=== PATIENT | female | born 1950 | race Caucasian/White ===

== ENCOUNTER 2020-04-17 11:20 | Outpatient (REF) | payer MEDICARE, OTHER, SELFPAY ==
[2020-04-17 14:04] LABS: Hemoglobin 13.6 g/dl (12.0-16.0); Mean Corpuscular HGB Conc 33.2 g/dl (31.0-35.0); Mean Corpuscular Hemoglobin 28.9 pg (27.0-33.0); Mean Platelet Volume 11.8 fL (9.4-12.3); Platelet Count 213 X10*3/uL (160-400); Red Blood Count 4.71 X10*6/uL (4.20-5.50); Red Cell Distribution Width 12.3 % (11.0-16.0); White Blood Count 5.6 X10*3/uL (4.8-10.8)
[2020-04-17 14:11] LABS: Glucose Urine UA NEG (NEG); Leukocyte Esterase Urine 2+ (NEG); Nitrite Urine NEG (NEG); Urine Blood NEG (NEG); Urine Ketones NEG (NEG); Urine Protein NEG (NEG-TRACE)
[2020-04-17 14:22] LABS: Appearance Urine HAZY; Color Urine YELLOW
[2020-04-17 14:38] LABS: Alanine Aminotransferase 21 U/L (0-31); Albumin Level 4.5 g/dL (3.5-5.0); Alkaline Phosphatase 66 U/L (39-117); Anion Gap 11 (12-20); Aspartate Amino Transferase 21 U/L (5-31); Bilirubin Total 0.6 mg/dL (0.0-1.0); Blood Urea Nitrogen 14 mg/dL (9-16); Calcium 9.6 mg/dL (8.4-10.2); Carbon Dioxide 30 mmol/L (22-29); Chloride 105 mmol/L (96-108); Cholesterol 206 mg/dL; Estimated Glomerular Filt Rate > 60; Glucose Fasting 88 mg/dL (60-99); HDL Cholesterol 43 mg/dL; LDL Cholesterol Calculated 125 mg/dl; Potassium 5.2 mmol/l (3.3-5.1); Sodium 141 mmol/L (135-145); Total Protein 7.2 g/dL (6.5-8.0); Triglycerides 194 mg/dL
[2020-04-17 15:01] LABS: Free T4 (Free Thyroxine) 1.09 ng/dL (0.71-1.85); Thyroid Stimulating Hormone 1.44 mIU/mL (0.32-4.0)
[2020-04-17 15:14] LABS: RBC Urine 0 /HPF (0); Squamous Epithelial Cell Urine 1+ /LPF
[2020-04-17 15:15] LABS: Mucus Urine 1+ /LPF
== END 2020-04-17 11:21 | disposition home or self-care (01) ==
LOC: HO.HMGCLDS 11:20
PROVIDERS: PCP Internal Medicine; Visit Provider Internal Medicine
DX: Z00.00 Encounter for general adult medical examination without abnormal findings (principal); E04.9 Nontoxic goiter, unspecified; E78.00 Pure hypercholesterolemia, unspecified; E55.9 Vitamin D deficiency, unspecified
CPT/HCPCS: 36415; 80053; 80061; 81003; 81015; 82306; 84439; 84443; 85027

== ENCOUNTER 2020-05-11 12:55 | Outpatient (REF) | payer MEDICARE, OTHER, SELFPAY ==
--- NOTE | 2020-05-11 13:01 | US_ITS ---
EXAMINATION: US THYROID CLINICAL INFORMATION: Nontoxic single thyroid nodule. COMPARISON: None TECHNIQUE: Linear transducer blackmon-scale and color Doppler examination with attention to the region of the thyroid. FINDINGS: SIZE: Measurements of the thyroid lobes and nodules are given in sagittal, anteroposterior and transverse dimensions respectively. Right Thyroid Lobe: 5.4 x 1.6 x 1.6 cm, volume 7.5 mL. Previously, it measured 5.2 x 1.9 x 1.7 cm and volume 8.8 mL. Parenchyma: The gland echotexture is heterogeneous. Thyroid vascularity is normal. Left Thyroid Lobe: 5.3 x 1.9 x 1.9 cm, volume 10.0 mL. Parenchyma: The gland echotexture is heterogeneous. Thyroid vascularity is normal. Isthmus: 0.31 cm in maximum AP dimension. RIGHT THYROID LOBE: There are several nodules. 1. Lower pole nodule measures 1.3 x 0.60 x 1.1 cm. It is heterogenous, smoothly marginated and has intranodular flow. Previously, it measured 1.2 x 0.71 x 1.0 cm. 2. Lower pole nodule measures 0.90 x 0.90 x 0.81 cm. It is heterogenous, smoothly marginated and has intranodular flow. Previously, it measured 0.61 x 0.40 x 0.50 cm. 3. A midpole nodule measures 0.77 x 0.52 x 0.70 cm. It is heterogeneous, smoothly marginated and has intranodular flow. Previously, it measured 0.72 x 0.70 x 0.80 cm. 4. Lower pole nodule measures 1.3 x 1.4 x 1.11 cm. It is hypoechoic, smoothly marginated and has intranodular flow. Previously, it measured 0.94 x 1.2 x 1.0 cm. ISTHMUS: No nodules. LEFT THYROID LOBE: There are at least 4 nodules seen. 1. Lower pole nodule measures 2.0 x 1.2 x 1.4 cm. It is heterogeneous, smoothly marginated and has intranodular flow. Previously, it measured 1.7 x 1.1 x 1.4 cm. 2. Lower pole nodule measures 1.1 x 0.74 x 0.80 cm. It is heterogenous, smoothly marginated with no intranodular flow. Previously, it measured 0.81 x 0.71 x 0.80 cm. 3. Midpole nodule measures 2.3 x 1.4 x 1.3 cm. It is heterogenous, smoothly marginated and has intranodular flow. Previously, it measured 1.7 x 1.3 x 1.3 cm. 4. Midpole nodule measures 0.62 x 0.40 x 0.61 cm. It is heterogeneous, smoothly marginated and has peripheral flow. Likely colloid cyst. Previously, it measured 0.65 x 0.40 x 0.55 cm. NODES: No lymphadenopathy is seen in the tissue surrounding the thyroid gland. US/US thyroid IMPRESSION: Enlarged heterogeneous thyroid gland with multiple bilateral thyroid nodules with minimal change from the last exam 02/24/2018. The left thyroid lobe midpole nodule shows minimal enlargement and is suspicious similar to previous study. If clinically indicated, fine-needle aspiration biopsy can be performed if already not done.
== END 2020-05-11 12:56 | disposition home or self-care (01) ==
LOC: HO.HMGCX 12:55
PROVIDERS: PCP Internal Medicine; Visit Provider Internal Medicine
DX: E04.1 Nontoxic single thyroid nodule (principal)
CPT/HCPCS: 76536

== ENCOUNTER 2021-09-05 07:51 | Outpatient (REF) | payer MEDICARE, OTHER, SELFPAY ==
[2021-09-05 11:15] LABS: Appearance Urine CLEAR; Color Urine YELLOW; Glucose Urine UA NEG (NEG); Leukocyte Esterase Urine 2+ (NEG); Nitrite Urine NEG (NEG); Urine Blood NEG (NEG); Urine Ketones NEG (NEG); Urine Protein NEG (NEG-TRACE)
[2021-09-05 11:16] LABS: Hematocrit 41.5 % (37.0-47.0); Hemoglobin 13.6 g/dl (12.0-16.0); Mean Corpuscular HGB Conc 32.8 g/dl (31.0-35.0); Mean Corpuscular Hemoglobin 28.3 pg (27.0-33.0); Mean Corpuscular Volume 86.3 fL (80.0-98.0); Mean Platelet Volume 11.2 fL (9.4-12.3); Platelet Count 222 X10*3/uL (160-400); Red Blood Count 4.81 X10*6/uL (4.20-5.50); Red Cell Distribution Width 12.5 % (11.0-16.0); White Blood Count 6.5 X10*3/uL (4.8-10.8)
[2021-09-05 11:34] LABS: Mucus Urine 1+ /LPF; RBC Urine 0-2 /HPF (0); Squamous Epithelial Cell Urine 1+ /LPF; WBC Urine 0-2 /HPF (0-4)
[2021-09-05 11:42] LABS: Alanine Aminotransferase 22 U/L (0-31); Albumin Level 3.9 g/dL (3.5-5.0); Alkaline Phosphatase 60 U/L (39-117); Anion Gap 11 (12-20); Aspartate Amino Transferase 19 U/L (5-31); Bilirubin Total 0.6 mg/dL (0.0-1.0); Blood Urea Nitrogen 18 mg/dL (9-16); Calcium 9.6 mg/dL (8.4-10.2); Carbon Dioxide 26 mmol/L (22-29); Chloride 106 mmol/L (96-108); Cholesterol 235 mg/dL; Estimated Glomerular Filt Rate > 60; Glucose Fasting 95 mg/dL (60-99); HDL Cholesterol 39 mg/dL; LDL Cholesterol Calculated 150 mg/dl; Potassium 4.3 mmol/L (3.3-5.1); Sodium 139 mmol/L (135-145); Total Protein 6.6 g/dL (6.5-8.0); Triglycerides 233 mg/dL
[2021-09-05 11:53] LABS: TSH reflex Free T4 1.99 uIU/mL (0.32-4.0); Vitamin D 25-OH Total 37.9 ng/mL (>30)
== END 2021-09-05 07:52 | disposition home or self-care (01) ==
LOC: HO.HMGCLNP 07:51
PROVIDERS: Visit Provider Internal Medicine
DX: Z00.00 Encounter for general adult medical examination without abnormal findings (principal); Z13.220 Encounter for screening for lipoid disorders; Z13.29 Encounter for screening for other suspected endocrine disorder
CPT/HCPCS: 80053; 80061; 81001; 82306; 84443; 85027

== ENCOUNTER 2021-10-09 09:13 | Outpatient (REF) | payer MEDICARE, OTHER, SELFPAY ==
--- NOTE | ~2021-10-09 | MM_ITS ---
EXAMINATION: BONE DENSITOMETRY CLINICAL INDICATION: Age-related osteoporosis without current pathological fracture. COMPARISON: This is the patient's baseline examination. TECHNIQUE: Using a Sweeper[employer] DXA System (software version: 13.1) manufactured by [employer], dual-energy x-ray absorptiometry was performed of the lumbar spine and left hip. The images are of good technical quality. Summary results are attached. FINDINGS: AP SPINE L1-L2 (excluding L3 and L4): The data of L1-L4 has been changed to exclude the L3 and L4 vertebral bodies, because degenerative changes at these levels may cause overestimation of lumbar spine density. BMD 0.788 g/cm2, Z-score -1.4, T-score -3.1, osteoporosis. LEFT FEMUR, NECK: BMD 0.755 g/cm2, Z-score -0.2, T-score -2.0, osteopenia. LEFT FEMUR, TOTAL: BMD 0.903 g/cm2, Z-score 0.8, T-score -0.8, normal. IDENTIFIED RISK FACTORS: Secondary osteoporosis, menopause. HISTORY OF FRACTURE: None listed. MEDICATIONS: Calcium supplements or multivitamin, vitamin D. MM/XR DEXA axial skeleton IMPRESSION: 1. DIAGNOSIS: Osteoporosis based on the lowest T-score value of -3.1 in the lumbar spine applying World Health Organization criteria. 2. 10-YEAR FRACTURE RISK PREDICTION, FRAX: According to the guidelines, FRAX calculation should only be performed on patients in the osteopenia bone density category. Therefore, FRAX was not performed on this patient. 3. Treatment Recommendations: NOF guidelines recommend consideration for treatment in postmenopausal women and men age 50 and older presenting with the following: -A hip or vertebral (clinical or morphometric) fracture. -T-score less than or equal to -2.5 at the femoral neck or spine after appropriate evaluation to exclude secondary causes. -Low bone mass at the hip or spine and a 10-year fracture probability by FRAX of greater than or equal to 3% for hip fracture or greater than or equal to 20% for major osteoporotic fracture based on the [place] adapted WHO algorithm. 4. Other Recommendations: All treatment decisions require clinical judgment and consideration of individual patient factors, including patient preferences, comorbidities, previous drug use, risk factors not captured in the FRAX model (e.g. frailty, falls, vitamin D deficiency, increased bone turnover, interval significant decline in bone density) and possible under or overestimation of fracture risk by FRAX. Additional medical evaluation for secondary cause of low bone mineral density may be appropriate. FUTURE SCAN RECOMMENDATION: People with diagnosed cases of osteoporosis or at high risk for fracture should have regular bone mineral density tests. For patients eligible for Medicare, routine testing is allowed once every 2 years. The testing frequency can be increased to one year for patients who have rapidly progressing disease, those who are receiving or discontinuing medical therapy to restore bone mass, or have additional risk factors.
== END 2021-10-09 09:14 | disposition home or self-care (01) ==
LOC: HO.MAMMO 09:13
PROVIDERS: PCP Internal Medicine; Visit Provider Internal Medicine
DX: Z13.820 Encounter for screening for osteoporosis (principal); M81.0 Age-related osteoporosis without current pathological fracture; Z78.0 Asymptomatic menopausal state
CPT/HCPCS: 77080

== ENCOUNTER 2022-03-21 13:21 | Outpatient (REF) | payer MEDICARE, OTHER, SELFPAY ==
--- NOTE | ~2022-03-21 | XR_ITS ---
EXAMINATION: XR LUMBOSACRAL SPINE CLINICAL INFORMATION: Low back pain. COMPARISON: None TECHNIQUE: Three views of the lumbosacral spine. FINDINGS: There is generalized osteopenia. Mild lumbar levoscoliosis with apex at L2. Mild to moderate multilevel degenerative changes are seen most pronounced at L5-S1. Multilevel mild superior plate compression deformities are seen from L2 to L5. Mild to moderate multilevel facet arthropathy most pronounced at L4-5 and L5-S1. The soft tissues are unremarkable. XR/XR lumbar spine 2-3V IMPRESSION: 1. Mild lumbar levoscoliosis and mild to moderate multilevel degenerative changes. 2. Multilevel superior endplate compression deformities do not demonstrate acute features. There is concern for acute fracture, MRI may be indicated to better assess acuity.
== END 2022-03-21 13:22 | disposition home or self-care (01) ==
LOC: HO.HMGCX 13:21
DX: M54.50 Low back pain, unspecified (principal)
CPT/HCPCS: 72100

== ENCOUNTER 2022-06-17 12:48 | Outpatient (REF) | payer MEDICARE, OTHER, SELFPAY ==
--- NOTE | ~2022-06-17 | XR_ITS ---
EXAMINATION: XR WRIST, RIGHT CLINICAL INFORMATION: Pain COMPARISON: None TECHNIQUE: PA, lateral, and oblique views of the right wrist. FINDINGS: No acute visible fracture or dislocation. Very slight chondrocalcinosis of the distal radioulnar joint. Mild multi joint arthritic changes. Joint spaces and alignment are otherwise maintained. Soft tissues are unremarkable. XR/XR wrist RT min 3V IMPRESSION: 1. No acute visible fracture or dislocation. 2. Very slight chondrocalcinosis of the distal radioulnar joint. 3. Mild multi joint arthritic changes.
== END 2022-06-17 12:49 | disposition home or self-care (01) ==
LOC: HO.HMGCX 12:48
PROVIDERS: PCP Internal Medicine; Visit Provider Internal Medicine
DX: M25.531 Pain in right wrist (principal); M79.644 Pain in right finger(s)
CPT/HCPCS: 73110

== ENCOUNTER 2022-08-30 07:42 | Outpatient (REF) | payer MEDICARE, OTHER, SELFPAY ==
[2022-08-30 11:45] LABS: MANUAL DIFF FLAG NO
[2022-08-30 11:56] LABS: Basophils Absolute Auto 0.1 X10*3/uL (0.0-0.2); Basophils Percent Auto 0.9 % (0-2); Eosinophils Absolute Auto 0.1 X10*3/uL (0.0-0.4); Eosinophils Percent Auto 2.1 % (0-4); Hematocrit 41.3 % (37.0-47.0); Hemoglobin 13.4 g/dl (12.0-16.0); Imm Gran Abs Auto 0.01 X10*3/uL (0.00-0.03); Imm Gran Pct Auto 0.2 % (0.0-0.4); Lymphocytes Absolute Auto 2.5 X10*3/uL (1.2-4.9); Lymphocytes Percent Auto 44.7 % (20-40); Mean Corpuscular HGB Conc 32.4 g/dl (31.0-35.0); Mean Corpuscular Hemoglobin 28.8 pg (27.0-33.0); Mean Corpuscular Volume 88.6 fL (80.0-98.0); Mean Platelet Volume 11.5 fL (9.4-12.3); Monocytes Absolute Auto 0.5 X10*3/uL (0.1-1.2); Monocytes Percent Auto 8.5 % (2-11); Neutrophils Absolute Auto 2.5 x10*3/uL (2.0-8.3); Neutrophils Percent Auto 43.6 % (45-73); Platelet Count 220 X10*3/uL (160-400); Red Blood Count 4.66 X10*6/uL (4.20-5.50); Red Cell Distribution Width 13.3 % (11.0-16.0); White Blood Count 5.7 X10*3/uL (4.8-10.8)
[2022-08-30 12:19] LABS: Alanine Aminotransferase 26 U/L (0-31); Alkaline Phosphatase 75 U/L (39-117); Anion Gap 13 (12-20); Aspartate Amino Transferase 23 U/L (5-31); Bilirubin Total 0.6 mg/dL (0.0-1.0); Blood Urea Nitrogen 20 mg/dL (9-16); Calcium 9.4 mg/dL (8.4-10.2); Carbon Dioxide 27 mmol/L (22-29); Chloride 106 mmol/L (96-108); Cholesterol 219 mg/dL; Estimated Glomerular Filt Rate > 60; Glucose Fasting 95 mg/dL (60-99); HDL Cholesterol 55 mg/dL; LDL Cholesterol Calculated 138 mg/dl; Potassium 4.4 mmol/L (3.3-5.1); Sodium 142 mmol/L (135-145); Total Protein 6.6 g/dL (6.5-8.0); Triglycerides 134 mg/dL
[2022-08-30 12:30] LABS: B Type Natriuretic Peptide < 10 pg/mL (<100)
[2022-08-30 12:43] LABS: TSH reflex Free T4 1.37 uIU/mL (0.32-4.0)
== END 2022-08-30 07:43 | disposition home or self-care (01) ==
LOC: HO.HMGCLDS 07:42
PROVIDERS: PCP Internal Medicine; Visit Provider Internal Medicine
DX: Z00.00 Encounter for general adult medical examination without abnormal findings (principal); E04.1 Nontoxic single thyroid nodule
CPT/HCPCS: 36415; 80053; 80061; 83880; 84443; 85025

== ENCOUNTER 2022-09-06 13:30 | Outpatient (RCR) | payer MEDICARE, OTHER, SELFPAY ==
--- NOTE | 2022-08-21 09:49 | MHC.OT.EP ---
[address] [phone] Occupational Therapy Plan of Care Date of Evaluation: 08/20/22 Diagnosis: Right wrist pain Pain Location: Right ulnar wrist and hypothenar ms. ache Pain Score: 3 Pain Scale Used: Numeric (0 - 10) Aggravating Factors: Lifting , gripping, Alleviating Factors: Massage, avoiding lifting Assessment: Pt is an active 71 yo female previously indep with all homemaking and gym workouts . Pt noticed a gradual worsening of right wrist pain leading to seeing her PCP and getting an XR on 06/17/22 XR shows mild OA joint changes. Pt reports her radial wrist pain has essentially resolved however she still has ulnar wrist and hand pain with mild edema noted at the hypothenar muscle Pt will benefit from OT for reducing inflammation and pain and improve ease with daily activities Frequency and Duration: The patient will be seen 2x wk x 2 wks Short Term Goals: Demo indep with jt protection with home making tasks and with gym work out Painfree wrist AROM Demo indep with HEP Dec co pain to occassional Sap Bw Architect Goals: Same as above Treatment Plan: Therapeutic Exercise Therapeutic Activity Home Exercise Program Neuro Re-ed Patient Education Edema Control ADL Training Iontophoresis Add nerve glides Electronically Signed By: Georgette Bustillos OT CHT CLT Please Sign and return to therapist. Thank you once again for your referral.
--- NOTE | 2022-09-06 14:22 | MHC.OT.DC ---
[address] [phone] F: [phone] Occupational Therapy Discharge Note Provider: Alexa Ibrahim Diagnosis: Right wrist pain Date of Surgery: Date of Evaluation: 08/20/22 Date of Discharge: 09/06/22 Treatments to Date: 4 Cancellations to Date: 0 No Shows to Date: 0 Discharge Status: Achieved Goals Improved Function Independent with HEP Discharge Summary: Pt reports improvement in ulnar wrist pain, only with pressure , pressing ,pushing or bumping heal of hand. Pain occasional low 1-2/10 Home Service Demonstrator WNL Goals met. Electronically Signed By: Georgette Bustillos OT CHT CLT Reviewed/agree with student documentation: Therapist: Please Sign and return to therapist, thank you for your referral.
== END 2022-09-06 14:23 | disposition home or self-care (01) ==
LOC: HO.OT 13:30
PROVIDERS: PCP Internal Medicine; Visit Provider Internal Medicine
DX: M25.531 Pain in right wrist (principal)
CPT/HCPCS: 97033; 97110; 97166

== ENCOUNTER 2022-09-10 14:14 | Outpatient (REF) | payer MEDICARE, OTHER, SELFPAY ==
--- NOTE | ~2022-09-10 | US_ITS ---
EXAMINATION: US VENOUS ULTRASOUND WITH DOPPLER LOWER EXTREMITY, LEFT CLINICAL INFORMATION: Left leg pain and swelling COMPARISON: None TECHNIQUE: Ultrasound of the deep veins is performed from the hip to the calf with compression sonography and color and pulse Doppler assessment. Spectral analysis with color-flow imaging is performed. FINDINGS: There is normal venous compression and respiratory variation and augmented flow. The visualized common femoral vein, superficial femoral vein, profunda femoral vein, popliteal vein, and the trifurcation region shows no evidence of deep venous thrombosis. There is no significant popliteal fossa cyst. If the patient's symptoms persist, followup ultrasound in 5 days 7 days might be of value to exclude proximal propagation from a non-visualized calf vein. US/US venous duplex LE LT IMPRESSION: No DVT demonstrated in the left lower extremity.
== END 2022-09-10 14:15 | disposition home or self-care (01) ==
LOC: HO.HMGCX 14:14
PROVIDERS: PCP Internal Medicine; Visit Provider Internal Medicine
DX: M79.605 Pain in left leg (principal); M79.89 Other specified soft tissue disorders
CPT/HCPCS: 93971

== ENCOUNTER 2022-09-11 07:42 | Outpatient (REF) | payer MEDICARE, OTHER, SELFPAY ==
[2022-09-11 11:04] LABS: MANUAL DIFF FLAG NO
[2022-09-11 11:10] LABS: Appearance Urine Clear; Color Urine Yellow; Glucose Urine UA Negative (Negative); Leukocyte Esterase Urine Moderate (2+) (Negative); Nitrite Urine Negative (Negative); UMIC TRIGGER UACC YES; Urine Blood Negative (Negative); Urine Ketones Negative (Negative); Urine Protein Negative (Neg-Trace)
[2022-09-11 11:17] LABS: Basophils Percent Auto 0.7 % (0-2); Eosinophils Absolute Auto 0.1 X10*3/uL (0.0-0.4); Eosinophils Percent Auto 1.7 % (0-4); Hematocrit 40.1 % (37.0-47.0); Hemoglobin 13.2 g/dl (12.0-16.0); Imm Gran Abs Auto 0.02 X10*3/uL (0.00-0.03); Imm Gran Pct Auto 0.3 % (0.0-0.4); Lymphocytes Absolute Auto 2.1 X10*3/uL (1.2-4.9); Lymphocytes Percent Auto 35.9 % (20-40); Mean Corpuscular HGB Conc 32.9 g/dl (31.0-35.0); Mean Corpuscular Hemoglobin 28.3 pg (27.0-33.0); Mean Corpuscular Volume 86.1 fL (80.0-98.0); Mean Platelet Volume 10.8 fL (9.4-12.3); Monocytes Absolute Auto 0.5 X10*3/uL (0.1-1.2); Monocytes Percent Auto 8.3 % (2-11); Neutrophils Absolute Auto 3.1 x10*3/uL (2.0-8.3); Neutrophils Percent Auto 53.1 % (45-73); Platelet Count 210 X10*3/uL (160-400); Red Blood Count 4.66 X10*6/uL (4.20-5.50); Red Cell Distribution Width 13.3 % (11.0-16.0); White Blood Count 5.8 X10*3/uL (4.8-10.8)
[2022-09-11 11:23] LABS: Bacteria Urine None Seen (None Seen); Hyaline Casts Urine 0-2 /LPF (0-2); RBC Urine 0-2 /HPF (0-2); WBC Urine 0-5 /HPF (0-5)
[2022-09-11 12:06] LABS: Alanine Aminotransferase 28 U/L (0-31); Albumin Level 3.9 g/dL (3.5-5.0); Alkaline Phosphatase 70 U/L (39-117); Anion Gap 13 (12-20); Aspartate Amino Transferase 24 U/L (5-31); Bilirubin Total 0.6 mg/dL (0.0-1.0); Blood Urea Nitrogen 23 mg/dL (9-16); Calcium 9.4 mg/dL (8.4-10.2); Carbon Dioxide 27 mmol/L (22-29); Chloride 106 mmol/L (96-108); Cholesterol 238 mg/dL; Estimated Glomerular Filt Rate > 60; Glucose Fasting 97 mg/dL (60-99); HDL Cholesterol 44 mg/dL; LDL Cholesterol Calculated 151 mg/dl; Sodium 141 mmol/L (135-145); Total Protein 6.5 g/dL (6.5-8.0); Triglycerides 219 mg/dL
[2022-09-11 12:13] LABS: TSH reflex Free T4 1.35 uIU/mL (0.32-4.0); Vitamin D 25-OH Total 87.7 ng/mL (>30)
== END 2022-09-11 07:43 | disposition home or self-care (01) ==
LOC: HO.HMGCLDS 07:42
PROVIDERS: PCP Internal Medicine; Visit Provider Internal Medicine
DX: Z00.00 Encounter for general adult medical examination without abnormal findings (principal); E04.2 Nontoxic multinodular goiter; R35.0 Frequency of micturition; M81.0 Age-related osteoporosis without current pathological fracture
CPT/HCPCS: 36415; 80053; 80061; 81001; 82306; 84443; 85025

== ENCOUNTER 2023-01-10 14:46 | Outpatient (REF) | payer MEDICARE, OTHER, SELFPAY ==
[2023-01-10 14:57] LABS: Appearance Urine Clear; Color Urine Yellow; Glucose Urine UA Negative (Negative); Leukocyte Esterase Urine Small (1+) (Negative); Nitrite Urine Negative (Negative); PH 5.5 (5.0-9.0); UMIC TRIGGER UACC YES; Urine Blood Negative (Negative); Urine Ketones Negative (Negative); Urine Protein Negative (Neg-Trace)
[2023-01-10 15:08] LABS: Bacteria Urine None Seen (None Seen); Hyaline Casts Urine 0-2 /LPF (0-2); UACC Culture Trigger YES; WBC Urine 0-5 /HPF (0-5)
== END 2023-01-10 14:47 | disposition home or self-care (01) ==
LOC: HO.LNP 14:46
PROVIDERS: Visit Provider Nurse Practitioner Family
DX: M54.9 Dorsalgia, unspecified (principal)
CPT/HCPCS: 81001; 87086

== ENCOUNTER 2023-02-21 10:50 | Outpatient (AMB) | payer MEDICARE, OTHER, SELFPAY ==
[2023-02-21 10:51] VITALS: BP 134/80; PULSE 70; O2SAT 96; BMI 27.0
--- NOTE | 2023-02-21 10:51 | MHC.PC.OV ---
Vital Signs 02/21/23 10:51 Height 5 ft 1 in Weight 143 lb BMI 27.0 BP 134/80 Blood Pressure Location Lt brachial Position Sitting Pulse 70 Pulse Source Pulse Oximeter Pulse Oximetry (%) 96 Oxygen Delivery Method Room Air Intake Visit Reasons: Follow up Intake Note: Pt is here today for a follow up visit. Allergies alendronate sodium Allergy (Unknown, Verified 02/21/23 10:53) bone pains Medication List - Last Reconciled 02/21/23 by Alexa Ibrahim MD denosumab (Prolia) 60 mg subcut [id number] furosemide 20 mg PO Q OTHER DAY tretinoin 0.025% 1 appl topical BEDTIME Tobacco use date assessed: 02/21/23 Fall risk assessment: No Falls in past year Last assessed Fall Risk: 02/21/23 Dental Screening Dental Screen Date: 02/21/23 Did you have a dental visit in the last 12 months?: Yes Did you have a dental problem in the last 6 months where you did not have access to dental care?: No Was dental information given to patient?: Patient has dentist HPI Follow up HPI Details Pt presents for follow-up of walk-in visit for acute lower back pain and UTI. the Symptoms resolved after treatment. [facility] Medical History Annual physical exam Low back pain Mammogram normal Multinodular goiter Normal Pap smear Osteoporosis Varicose vein of leg Surgical History H/O colonoscopy No pertinent past surgical history Family History Father Liver cancer Mother Liver cancer Brother Cancer Sister No problems noted. Son No problems noted. Son No problems noted. Son No problems noted. Social History Housing: Condominium Patient Tobacco Use Status: Never used Tobacco e-Cigarette/Vaping Use: Never Used Current occupational status: retired Cognitive needs: No Hearing needs: No Vision needs: No Questionnaire Thrive Questionnaire Date Thrive assessed: 02/21/23 I am a: Patient What is your living situation today?: I have a steady place to live Within the past 12 months, did the food you bought not last and you didn't have the money to get more?: Never true Within the past 12 months, did you worry whether your food would run out before you got money to buy more?: Never true Do you have trouble paying for medicines?: No Do you have trouble getting transportation to medical appointments?: No Do you have trouble paying your heating and electricity bill?: No Do you have trouble taking care of your child, family member or friend?: No Do you have trouble with day-to-day activities such as bathing, preparing meals, shopping, managing finances, etc.?: No Are you currently unemployed and looking for a job?: No Are you interested in more education?: No Please select the resources that you would like help with: None Currently or been in a relationship where the following occur: no concerns reported AUDIT C Alcohol Use Questionnaire (AUDIT-C) 1. How often do you have a drink containing alcohol?: Never 3. How often do you have six or more drinks on one occasion?: Never Total Score: 0 SARTHAK-7 AMB Questionnaire SARTHAK-7 Date SARTHAK - 7 assessed: 02/21/23 Feeling nervous, anxious, or on edge: 0 = Not at all Not being able to stop or control worryin = Not at all Worrying too much about different things: 0 = Not at all Trouble relaxin = Not at all Being so restless that it is hard to sit still: 0 = Not at all Becoming easily annoyed or irritable: 0 = Not at all Feeling afraid as if something awful might happen: 0 = Not at all Total SARTHAK-7 score (0-4 normal; 5-9 mild; 10-14 moderate; 15-21 severe): 0 Source: Developed by Drs. Yoandy Falcon, Yolanda Morrison, Cody Schuler and colleagues, with an educational kaylene from [employer]. Review of Systems Const All systems reviewed & are unremarkable except as noted in HPI and below Reports no additional complaints Eyes Reports no additional complaints ENT Reports no additional complaints Card Reports no additional complaints Resp Reports no additional complaints GI Reports no additional complaints Reports no additional complaints Physical exam (Primary Care) Vital Signs: Last Vital Signs Pulse 70 02/21/23 10:51 BP 134/80 02/21/23 10:51 Pulse Ox 96 02/21/23 10:51 Oxygen Delivery Method Room Air 02/21/23 10:51 BMI result Body Mass Index 27.0 Tobacco/Smoking Status: Tobacco use Status Tobacco use date assessed 02/21/23 02/21/23 10:56 Patient Tobacco Use Status Never used Tobacco 02/21/23 10:56 e-Cigarette/Vaping Use Never Used 02/21/23 10:56 Thrive Assessment: Date of Thrive Assessment Date Thrive assessed 02/21/23 02/21/23 10:56 Currently or been in a relationship where the following occur: no concerns reported Const General: no acute distress HENMT Head: Yes normal to inspection Throat: Yes posterior oropharynx normal Neck Neck: Yes no lymphadenopathy and Yes supple Resp Effort & Inspection: normal respiratory effort Auscultation: clear to auscultation bilaterally Cardio Rhythm: regular rhythm Heart sounds: S1 normal heart sound present and S2 normal heart sound present GI Inspection: Yes normal to inspection Palpation (GI): Soft to palpation Percussion: Yes normal to percussion Assessment and Plan Assessment & Plan (1) Osteoporosis: Comment: Dexa 09/2021 T score -3.1 SPINE, intolerant to Fosamax, Prolia to be started 09/05 Code(s): M81.0 - Age-related osteoporosis without current pathological fracture Plan: Continue Prolia recheck DEXA in 2024 (2) Annual physical exam: Code(s): Z00.00 - Encounter for general adult medical examination without abnormal findings Plan: Return for physical in 6 months Orders: Orders Comprehensive [place]. Panel Fast 6 Months E55.9 - Vitamin D deficiency, unspecified, M81.0 - Age-related osteoporosis without current pathological fracture, Z00.00 - Encounter for general adult medical examination without abnormal findings Lipid Panel 6 Months E55.9 - Vitamin D deficiency, unspecified, M81.0 - Age-related osteoporosis without current pathological fracture, Z00.00 - Encounter for general adult medical examination without abnormal findings TSH reflex Free T4 6 Months E55.9 - Vitamin D deficiency, unspecified, M81.0 - Age-related osteoporosis without current pathological fracture, Z00.00 - Encounter for general adult medical examination without abnormal findings Vitamin D 25-OH Total 6 Months E55.9 - Vitamin D deficiency, unspecified, M81.0 - Age-related osteoporosis without current pathological fracture, Z00.00 - Encounter for general adult medical examination without abnormal findings Complete Blood Count Auto Diff 6 Months E55.9 - Vitamin D deficiency, unspecified, M81.0 - Age-related osteoporosis without current pathological fracture, Z00.00 - Encounter for general adult medical examination without abnormal findings Coding Level of Care Code Est Pt Level 3 (84720) Diagnoses Osteoporosis M81.0 Annual physical exam Z00.00
== END 2023-02-21 11:19 | disposition home or self-care (01) ==
PROVIDERS: PCP Internal Medicine; Visit Provider Internal Medicine
DX: M81.0 Age-related osteoporosis without current pathological fracture (principal); Z00.00 Encounter for general adult medical examination without abnormal findings
CPT/HCPCS: 99213

== ENCOUNTER 2023-03-28 09:34 | Outpatient (AMB) | payer MEDICARE, OTHER, SELFPAY ==
--- NOTE | 2023-03-28 09:45 | AM.OFFVISNUR ---
Intake Intake Visit Reasons: Prolia injection Intake Note: Pt arrived for Prolia injection as ordered Allergies alendronate sodium Allergy (Unknown, Verified 02/21/23 10:53) bone pains Office Meds Prolia 60 mg/mL subcutaneous syringe Performing Provider: Alexa Ibrahim MD Performing Location: [facility] Administered by: Viviana Ramirez RN on 03/28/23 09:45 Dose Route Admin Location Dispensed Lot Number Expiration Date [address] Mender 60 mg subcut left upper arm 1 mL [id number] 09/10/25 23190-126-91 [employer] Comments: Pt supplied Coding Assessment & Plan Assessment & Plan Orders: Orders AMB Denosumab Injection Patient Supplied Today M81.0 - Age-related osteoporosis without current pathological fracture
== END 2023-03-28 09:58 | disposition home or self-care (01) ==
PROVIDERS: PCP Internal Medicine; Visit Provider Internal Medicine
DX: M81.0 Age-related osteoporosis without current pathological fracture (principal)
CPT/HCPCS: 96372; J0897

== ENCOUNTER 2023-04-21 13:56 | Outpatient (AMB) | payer MEDICARE, OTHER, SELFPAY ==
--- NOTE | 2023-04-21 15:48 | MHC.OFFWIV ---
Intake Vital Signs 04/21/23 15:49 Weight 141 lb BP 124/70 Blood Pressure Location Rt brachial Position Sitting Pulse 74 Pulse Source Pulse Oximeter Temp 98 F Temp Source Oral Pulse Oximetry (%) 97 Oxygen Delivery Method Room Air Intake Visit Reasons: EP AB pain Intake Note: Patient here for side pain that started friday night and tender to touch. She also mentions she has lost her voice which started this morning and also has complaints of chills at night. Patient Tobacco Use Status: Never used Tobacco Allergies alendronate sodium Allergy (Unknown, Verified 04/21/23 16:09) bone pains Medication List - Last Reconciled 04/21/23 by Derek Leary MD denosumab (Prolia) 60 mg subcut [id number] furosemide 20 mg PO Q OTHER DAY tretinoin 0.025% 1 appl topical BEDTIME Do you need a note to return to daycare/school/sports/work: No HPI EP AB pain HPI Details 72-year-old female presents to the office for a sick visit. Patient is complaining of chills and rigors. She has low back pain for the past few days. No difficulty urinating. No nausea or vomiting. [facility] Medical History Annual physical exam Low back pain Mammogram normal Multinodular goiter Normal Pap smear Osteoporosis Varicose vein of leg Surgical History H/O colonoscopy No pertinent past surgical history Family History Father Liver cancer Mother Liver cancer Brother Cancer Sister No problems noted. Son No problems noted. Son No problems noted. Son No problems noted. Social History Housing: Condominium Patient Tobacco Use Status: Never used Tobacco e-Cigarette/Vaping Use: Never Used Current occupational status: retired Cognitive needs: No Hearing needs: No Vision needs: No Physical Exam Vital Signs: Last Vital Signs Temp 98 F 04/21/23 15:49 Pulse 74 04/21/23 15:49 BP 124/70 04/21/23 15:49 Pulse Ox 97 04/21/23 15:49 Oxygen Delivery Method Room Air 04/21/23 15:49 Const General: cooperative and healthy appearing Nutritional Appearance: well nourished Orientation/consciousness: patient oriented x3 Limitations: no limitations HEENT Head: Yes normal to inspection Eyes General: appearance normal, both eyes and all related structures Neck Neck: Yes normal visual inspection Chest Chest palpation & inspection: normal palpation of entire chest wall Resp Effort & Inspection: normal respiratory effort Neuro General: patient oriented x3 Assessment & Plan Assessment & Plan (1) UTI (urinary tract infection): Code(s): N39.0 - Urinary tract infection, site not specified Plan: Bactrim for 5 days given. If symptoms do not improve to follow-up here. Blood work has been ordered. Coding Level of Care Code Est Pt Level 4 (42190) Diagnoses UTI (urinary tract infection) N39.0
[2023-04-21 15:49] VITALS: BP 124/70; PULSE 74; TEMP 36.6; O2SAT 97
== END 2023-04-21 16:25 | disposition home or self-care (01) ==
PROVIDERS: PCP Internal Medicine; Visit Provider Internal Medicine
DX: N39.0 Urinary tract infection, site not specified (principal)
CPT/HCPCS: 99214

== ENCOUNTER 2023-04-22 08:10 | Outpatient (REF) | payer MEDICARE, OTHER, SELFPAY | END 2023-04-22 08:11 | disposition home or self-care (01) | LOC: HO.HMGCLDS 08:10 | PROVIDERS: PCP Internal Medicine; Visit Provider Internal Medicine | DX: N39.0 Urinary tract infection, site not specified (principal); E03.9 Hypothyroidism, unspecified | CPT/HCPCS: 36415; 80048; 80076; 81001; 84443; 85027; 85652 ==

== ENCOUNTER 2023-08-25 10:49 | Outpatient (AMB) | payer MEDICARE, SELFPAY ==
[2023-08-25 11:19] VITALS: BP 124/76; PULSE 64; O2SAT 95; BMI 28.0
--- NOTE | 2023-08-25 11:19 | A.OFFPC_ITS ---
Vital Signs 08/25/23 11:19 Height 5 ft 1 in Weight 148 lb BMI 28.0 BP 124/76 Blood Pressure Location Lt brachial Position Sitting Pulse 64 Pulse Source Pulse Oximeter Pulse Oximetry (%) 95 Oxygen Delivery Method Room Air Intake Visit Reasons: 6 month follow up Intake Note: Pt is here today for a 6 months follow up visit. Allergies alendronate sodium Allergy (Unknown, Verified 08/25/23 11:20) bone pains Medication List - Last Reconciled 08/25/23 by Alexa Ibrahim MD denosumab (Prolia) 60 mg subcut [id number] furosemide 20 mg PO Q OTHER DAY tretinoin 0.025% 1 appl topical BEDTIME Tobacco use date assessed: 08/25/23 Fall risk assessment: No Falls in past year Last assessed Fall Risk: 08/25/23 Dental Screening Dental Screen Date: 08/25/23 Did you have a dental visit in the last 12 months?: Yes Did you have a dental problem in the last 6 months where you did not have access to dental care?: No Was dental information given to patient?: Patient has dentist HPI 6 month follow up HPI Details Pt presents complaining of persistent postnasal drip worse in the winter despite using saline nasal spray and Flonase at least twice a week. She denies cough but reports intermittent heartburn relief with [id number] Pepcid. Patient reports hoarseness getting worse over last few months. Patient has been getting Prolia injection for 1 year and is due in September for the 3rd injection. Patient has been taking vitamin-D supplement and exercising regularly. [facility] Medical History Low back pain Annual physical exam Normal Pap smear Mammogram normal Osteoporosis Varicose vein of leg Multinodular goiter Surgical History H/O colonoscopy No pertinent past surgical history Family History Father Liver cancer Mother Liver cancer Brother Cancer Sister No problems noted. Son No problems noted. Son No problems noted. Son No problems noted. Social History Housing: Condominium Patient Tobacco Use Status: Never used Tobacco e-Cigarette/Vaping Use: Never Used Current occupational status: retired Cognitive needs: No Hearing needs: No Vision needs: No Questionnaire Thrive Questionnaire Date Thrive assessed: 02/21/23 AUDIT C Alcohol Use Questionnaire (AUDIT-C) 1. How often do you have a drink containing alcohol?: Never 3. How often do you have six or more drinks on one occasion?: Never Total Score: 0 SARTHAK-7 AMB Questionnaire SARTHAK-7 Date SARTHAK - 7 assessed: 02/21/23 Source: Developed by Drs. Yoandy Falcon, Yolanda Morrison, Cody Schuler and colleagues, with an educational kaylene from [employer]. Review of Systems Const All systems reviewed & are unremarkable except as noted in HPI and below Reports no additional complaints Eyes Reports no additional complaints ENT Reports no additional complaints Card Reports no additional complaints Resp Reports no additional complaints GI Reports no additional complaints Reports no additional complaints Physical exam (Primary Care) Vital Signs: Last Vital Signs Pulse 64 08/25/23 11:19 BP 124/76 08/25/23 11:19 Pulse Ox 95 08/25/23 11:19 Oxygen Delivery Method Room Air 08/25/23 11:19 BMI result Body Mass Index 28.0 Tobacco/Smoking Status: Tobacco use Status Tobacco use date assessed 08/25/23 08/25/23 11:23 Patient Tobacco Use Status Never used Tobacco 08/25/23 11:23 e-Cigarette/Vaping Use Never Used 08/25/23 11:23 Thrive Assessment: Date of Thrive Assessment Date Thrive assessed 02/21/23 08/25/23 11:23 Const General: no acute distress HENMT Ears: hearing grossly normal bilaterally General nose exam: Normal external nose present Face and sinus: Yes normal facial exam and No sinus tenderness Throat: Yes postnasal drainage Neck Neck: Yes no lymphadenopathy and Yes supple Resp Effort & Inspection: normal respiratory effort Auscultation: clear to auscultation bilaterally Cardio Rhythm: regular rhythm Heart sounds: S1 normal heart sound present and S2 normal heart sound present GI Inspection: Yes normal to inspection Palpation (GI): Soft to palpation Assessment and Plan Assessment & Plan (1) Hoarseness: Code(s): R49.0 - Dysphonia Plan: Continue saline nasal spray and Flonase. Patient was advised to antihistamine in the winter time for worsening postnasal drip. Referred to ENT for evaluation of vocal cords (2) Osteoporosis: Comment: Dexa 09/2021 T score -3.1 SPINE, intolerant to Fosamax, Prolia to be started 09/05 Code(s): M81.0 - Age-related osteoporosis without current pathological fracture Plan: continue vitamin-D, weight-bearing exercises and Prolia for 1 more year and then repeat DEXA. (3) Multinodular goiter: Comment: s/p negative thyroid nodule biopsy 2015 Dr. Rodas, f/u with [facility] q 4 yrs Code(s): E04.2 - Nontoxic multinodular goiter Plan: FOLLOW-UP WITH ENDOCRINOLOGY (4) Venous insufficiency of both lower extremities: Code(s): I87.2 - Venous insufficiency (chronic) (peripheral) Plan: Continue compression leg wear and furosemide as needed Orders: Orders Comprehensive [place]. Panel Fast 1 Month M81.0 - Age-related osteoporosis without current pathological fracture, R49.0 - Dysphonia Lipid Panel 1 Month M81.0 - Age-related osteoporosis without current pathological fracture, R49.0 - Dysphonia Complete Blood Count Auto Diff 1 Month M81.0 - Age-related osteoporosis without current pathological fracture, R49.0 - Dysphonia Vitamin D 25-OH Total 1 Month M81.0 - Age-related osteoporosis without current pathological fracture, R49.0 - Dysphonia UA CC w/rflx Micro + Cult 1 Month M81.0 - Age-related osteoporosis without cur rent pathological fracture, R49.0 - Dysphonia Referrals Ear/Nose/Throat Referral R49.0 - Dysphonia Cologuard Test Z12.11 - Encounter for screening for malignant neoplasm of colon, Z12.12 - Encounter for screening for malignant neoplasm of rectum Medications: Refilled denosumab (Prolia) 60 mg subcut [id number] 1 mL 2RF denosumab (Prolia) 60 mg subcut [id number] 1 mL 2RF Coding Level of Care Code Est Pt Level 4 (18512) Diagnoses Hoarseness R49.0 Osteoporosis M81.0 Multinodular goiter E04.2 Venous insufficiency of both lower extremities I87.2
== END 2023-08-25 11:58 | disposition home or self-care (01) ==
PROVIDERS: PCP Internal Medicine; Visit Provider Internal Medicine
DX: R49.0 Dysphonia (principal); M81.0 Age-related osteoporosis without current pathological fracture; E04.2 Nontoxic multinodular goiter; I87.2 Venous insufficiency (chronic) (peripheral)
CPT/HCPCS: 99214

== ENCOUNTER 2023-09-11 09:50 | Outpatient (REF) | payer MEDICARE, SELFPAY ==
[2023-09-11 13:03] LABS: MANUAL DIFF FLAG NO
[2023-09-11 13:24] LABS: Basophils Absolute Auto 0.1 X10*3/uL (0.0-0.2); Basophils Percent Auto 0.8 % (0-2); Eosinophils Absolute Auto 0.1 X10*3/uL (0.0-0.4); Eosinophils Percent Auto 1.4 % (0-4); Hemoglobin 15.1 g/dl (12.0-16.0); Imm Gran Abs Auto 0.03 X10*3/uL (0.00-0.03); Imm Gran Pct Auto 0.5 % (0.0-0.4); Lymphocytes Percent Auto 46.3 % (20-40); Mean Corpuscular HGB Conc 33.6 g/dl (31.0-35.0); Mean Corpuscular Hemoglobin 28.6 pg (27.0-33.0); Mean Corpuscular Volume 85.2 fL (80.0-98.0); Monocytes Absolute Auto 0.4 X10*3/uL (0.1-1.2); Monocytes Percent Auto 6.9 % (2-11); Neutrophils Absolute Auto 2.8 x10*3/uL (2.0-8.3); Neutrophils Percent Auto 44.1 % (45-73); Platelet Count 241 X10*3/uL (160-400); Red Blood Count 5.28 X10*6/uL (4.20-5.50); Red Cell Distribution Width 13.2 % (11.0-16.0); White Blood Count 6.4 X10*3/uL (4.8-10.8)
[2023-09-11 13:41] LABS: Appearance Urine Clear; Color Urine Yellow; Glucose Urine UA Negative (Negative); Leukocyte Esterase Urine Negative (Negative); Nitrite Urine Negative (Negative); PH 7.5 (5.0-9.0); Specific Gravity - Urine <= 1.005 (1.005-1.025); Urine Blood Negative (Negative); Urine Ketones Negative (Negative); Urine Protein Negative (Neg-Trace)
[2023-09-11 13:51] LABS: Alanine Aminotransferase 17 U/L (0-31); Albumin Level 4.2 g/dL (3.5-5.0); Alkaline Phosphatase 47 U/L (39-117); Anion Gap 12 (12-20); Aspartate Amino Transferase 20 U/L (5-31); Bilirubin Total 0.5 mg/dL (0.0-1.0); Blood Urea Nitrogen 21 mg/dL (9-16); Calcium 9.9 mg/dL (8.4-10.2); Carbon Dioxide 29 mmol/L (22-29); Chloride 105 mmol/L (96-108); Cholesterol 218 mg/dL (<200); Estimated Glomerular Filt Rate > 60; Glucose Fasting 94 mg/dL (60-99); HDL Cholesterol 44 mg/dL (>40); LDL Cholesterol Calculated 134 mg/dL (<100); Potassium 4.4 mmol/L (3.3-5.1); Sodium 142 mmol/L (135-145); Total Protein 7.3 g/dL (6.5-8.0); Triglycerides 200 mg/dL (<150)
[2023-09-11 13:55] LABS: Vitamin D 25-OH Total 145.9 ng/mL (>30)
== END 2023-09-11 09:51 | disposition home or self-care (01) ==
LOC: HO.HMGCLDS 09:50
PROVIDERS: PCP Internal Medicine; Visit Provider Internal Medicine
DX: Z00.00 Encounter for general adult medical examination without abnormal findings (principal); Z13.6 Encounter for screening for cardiovascular disorders; R49.0 Dysphonia; E55.9 Vitamin D deficiency, unspecified; M81.0 Age-related osteoporosis without current pathological fracture
CPT/HCPCS: 36415; 80053; 80061; 81003; 82306; 84443; 85025

== ENCOUNTER 2023-09-11 10:10 | Outpatient (AMB) | payer MEDICARE, SELFPAY ==
--- NOTE | 2023-09-11 10:20 | AM.OFFVISNUR ---
Intake Intake Visit Reasons: injection Communications Supervisor Required: No Allergies alendronate sodium Allergy (Unknown, Verified 09/11/23 10:20) bone pains Medication List - Last Reconciled 09/11/23 by Viviana Ramirez RN denosumab (Prolia) 60 mg subcut [id number] furosemide 20 mg PO Q OTHER DAY tretinoin 0.025% 1 appl topical BEDTIME Is last menstrual period known: No Post menopausal: Yes Patient : No Do you need a note to return to daycare/school/sports/work: No Office Meds Prolia 60 mg/mL subcutaneous syringe Performing Provider: Alexa Ibrahim MD Performing Location: [facility] Administered by: Viviana Ramirez RN on 09/11/23 10:21 Dose Route Admin Location Dispensed Lot Number Expiration Date [employer] Managing Director 60 mg subcut left upper arm 1 mL [id number] 10/11/25 05997-917-89 [employer] Comments: Pt supplied Coding Assessment & Plan Assessment & Plan Orders: Orders AMB Denosumab Injection Patient Supplied Today M81.0 - Age-related osteoporosis without current pathological fracture
== END 2023-09-11 12:25 | disposition home or self-care (01) ==
LOC: HO.HMGC 10:10
PROVIDERS: PCP Internal Medicine; Visit Provider Internal Medicine
DX: M81.0 Age-related osteoporosis without current pathological fracture (principal)
CPT/HCPCS: 96372; J0897

== ENCOUNTER 2024-01-29 09:44 | Outpatient (AMB) | payer MEDICARE, SELFPAY ==
[2024-01-29 10:15] VITALS: BP 128/74; PULSE 71; O2SAT 96; BMI 27.4
--- NOTE | 2024-01-29 10:16 | AM.OFFVISMDC ---
Intake Vital Signs 01/29/24 10:15 Height 5 ft 1 in Weight 145 lb BMI 27.4 BP 128/74 Blood Pressure Location Lt brachial Position Sitting Pulse 71 Pulse Source Pulse Oximeter Pulse Oximetry (%) 96 Oxygen Delivery Method Room Air Intake Visit Reasons: YOSHIV [id number] Ashu from 01/14/24 Allergies alendronate sodium Allergy (Unknown, Verified 09/11/23 10:20) bone pains Medication List - Last Reconciled 01/29/24 by Alexa Ibrahim MD denosumab (Prolia) 60 mg subcut [id number] furosemide 20 mg PO Q OTHER DAY tretinoin 0.025% 1 appl topical BEDTIME HPI SWV [id number] Ashu from 01/14/24 HPI Details Initiated the conversation about Advanced Directives. Advanced Directives help? patients prepare for current and future decisions about their medical treatment? and place of care. Discussed with patient that it is a process where a patients? current condition and prognosis are reviewed, their wishes for information? regarding their illness are elicited, and likely medical dilemmas are presented? and options discussed. The form can be amended as needed, reviewed yearly and? make changes as needed IPPE/AWV ? year old presents? for her ? Annual? Wellness Visit, initial visit.? Medical / Social History Reviewed? Past Medical History ?Yes? . ? [place]? of Care / Care Team list updated ?Yes . ? Surgical/Hospitalization? History ?Yes . ? Current Medications? (including OTC and supplements) ?Yes . ? Family History ?Yes? . ? Tobacco? Control form ?Yes . ? AUDIT-C (Alcohol use) form? ?Yes . ? Illicit drug use in Social? History ?Yes . ? Current diagnosis of? depression? ?No ? Appropriate PHQ2/PHQ9? completed ?Yes . ? Data entered by ?Medical? Donations Attendant and reviewed by provider ? Fall Risk ? Fall? History? Have you had any falls with? injury in the past year? ?No . ? Have you had two or more? falls in the past year? ?No . ? Fall Risk Assessment: ?No? falls in the past year . ? HRA filled out by? the patient, reviewed by Provider and scanned. ? IPPE/AWV ? Balance? [place]? ?Yes . ? Tandem? walk ?Yes . ? Walk and? Turn ?Yes . ? Rise from? sit to stand ?Yes . ?Vision? Corrective? lens ?Yes ? Vision? screen ? Up-to-date, has an appointment [] for vision? screening and glaucoma screening ?Hearing? Whisper? test ?pass .? Initiated the conversation about Advanced Directives. Advanced Directives help? patients prepare for current and future decisions about their medical treatment? and place of care. Discussed with patient that it is a process where a patients? current condition and prognosis are reviewed, their wishes for information? regarding their illness are elicited, and likely medical dilemmas are presented? and options discussed. The form can be amended as needed, reviewed yearly and? make changes as needed Written? Plan?Completed. See Patient? Documents. [facility] Medical History Low back pain Annual physical exam Normal Pap smear Mammogram normal Osteoporosis Varicose vein of leg Multinodular goiter Surgical History H/O colonoscopy No pertinent past surgical history Family History Father Liver cancer Mother Liver cancer Brother Cancer Sister No problems noted. Son No problems noted. Son No problems noted. Son No problems noted. Social History Housing: Condominium Patient Tobacco Use Status: Never used Tobacco e-Cigarette/Vaping Use: Never Used Current occupational status: retired Cognitive needs: No Hearing needs: No Vision needs: No Questionnaire Medicare Wellness Checkup [age] What gender do you identify with?: female During the past 4 weeks, how much have you been bothered by emotional problems such as feeling anxious, depressed, irritable, sad or downhearted, and blue?: not at all During the past 4 weeks, has your physical & emotional health limited your social activities with family, friends, neighbors, or groups?: not at all During the past 4 weeks, how much bodily pain have you generally had?: mild pain During the past 4 weeks, was someone available to help you if you needed & wanted help?: yes, as much as I wanted During the past 4 weeks, what was the hardest physical activity you could do for at least 2 minutes?: moderate Can you get to places out of walking distance without help? (For eg., can you travel alone on buses, taxis or drive your car?): No Can you go shopping for groceries or clothes without someone's help?: Yes Can you prepare your own meals?: Yes Can you do your housework without help?: Yes Because of any health problems, do you need the help of another person with your personal care needs such as eating, bathing, dressing or getting around the house?: No Can you handle your own money without help?: Yes During the past 4 weeks, how would you rate your health in general?: good During the past 4 weeks how have things been going for you?: very well; could hardly better Are you having difficulties driving your car?: not applicable, I don't use a car Do you always fasten your seat belt when you are in a car?: yes, usually During past 4 weeks, have you been bothered by the following: never: Falling or dizzy when standing up, Sexual problems?, Trouble eating well?, Teeth or denture problems?, Problems using the telephone? and Tiredness or fatigue? Have you fallen 2 or more times in the past year?: No Are you afraid of falling?: No Are you a smoker?: no During the past 4 weeks, how many drinks of wine, beer, or other alcoholic beverages did you have?: no alcohol at all Do you exercise for about 20 minutes 3 or more times a week?: yes, some of the time Have you been given information to help with the following?: no: Hazards in your house that might hurt you? and no: Keeping track of your medications? How often do you have trouble taking medicines the way you have been told to take them?: I always take medicine as prescribed How confident are you that you can control & manage most of your health problems?: very confident What is your race?: White Mini Mental State Exam (MMSE) Orientation What is the (year) (season) (date) (day) (month)?: year, season, date, day and month Where are we (state) (county) (town or city) (hospital) (floor)?: state, town or city, hospital/clinic and floor Registration Name of 3 unrelated objects clearly and slowly, then ask patient to repeat all 3 of them. (1st repeat determines score. Make sure they can repeat all three): object 1, object 2 and object 3 Attention & Calculation (CHOOSE ONE) Spell WORLD backwards (DLROW): 5 letters Recall Ask patient to repeat the 3 items from question #3.: object 1, object 2 and object 3 Language Show patient a wristwatch & ask what it is. Repeat for pencil.: watch and pencil Ask the patient to repeat the phrase 'No ifs, ands, or buts' after you.: correct Ask the patient to 'take a piece of paper with their right hand' 'fold paper in half' 'place paper on floor': take paper in right hand, fold paper in half and place paper on floor Print the sentence 'CLOSE YOUR EYES' on a piece. If patient actually closes eyes then score.: followed written direction Give patient a blank piece of paper & ask to write a sentence. Score if it contains a noun & verb.: sentence contains subject and verb Score Score: 28 Activity of Daily Living Bathing - sponge bath, tub bath or shower: receives no assistance (gets in/out by self, if usual bathing means Dressing - getting clothes from closets & drawers, including inner/outer garments & fasteners.: gets clothes & gets completely dressed without help Toileting - going to the 'toilet room' for urine/bowel elimination & cleaning self/arranging clothes: goes to toilet room, cleans self, arranges clothes without help Transfer: moves in & out of bed and chair without help (may use support object) Continence: controls urination/bowel movements completely by self Feeding: feeds self without help Total Score: 0 Information obtained from: patient Using telephone: independent Traveling: dependent Shopping: independent Preparing meals: independent Housework: independent Taking medicine: independent Managing money: independent PHQ-9 Over the last 2 weeks, how often have you been bothered by any of the following problems? 1. Little interest or pleasure in doing things: not at all 2. Feeling down, depressed, or hopeless: not at all 3. Trouble falling or staying asleep, or sleeping too much: not at all 4. Feeling tired or having little energy: not at all 5. Poor appetite or overeating: not at all 6. Feeling bad about yourself - or that you are a failure or have let yourself or your family down: not at all 7. Trouble concentrating on things, such as reading the newspaper or watching television: not at all 8. Moving or speaking so slowly that other people could have noticed. Or the opposite - being so fidgety or restless that you have been moving around a lot more than usual: not at all 9. Thoughts that you would be better off or of hurting yourself in some way: not at all Total score: 0 Depression Screening Interpretation: Negative Depression Screening Done: Yes Source: Developed by Drs. Yoandy Falcon, Yolanda Morrison, Cody Schuler and colleagues, with an educational kaylene from [employer]). Review of Systems Const All systems reviewed & are unremarkable except as noted in HPI and below Eyes Reports no additional complaints ENT Reports no additional complaints Card Reports no additional complaints Resp Reports no additional complaints GI Reports no additional complaints Reports no additional complaints Physical Exam Vital Signs: Last Vital Signs Pulse 71 01/29/24 10:15 BP 128/74 01/29/24 10:15 Pulse Ox 96 01/29/24 10:15 Oxygen Delivery Method Room Air 01/29/24 10:15 BMI result Body Mass Index 27.4 HEENT Head: Yes normal to inspection Neck Neck: Yes no lymphadenopathy and Yes supple Thyroid: diffusely enlarged Resp Effort & Inspection: normal respiratory effort Auscultation: clear to auscultation bilaterally Cardio Rhythm: regular rhythm Heart sounds: S1 normal heart sound present and S2 normal heart sound present GI Inspection: Yes normal to inspection Palpation (GI): Soft to palpation Percussion: Yes normal to percussion Auscultation: normal bowel sounds Extrem General: Yes no clubbing, cyanosis or edema Assessment & Plan Assessment & Plan (1) Bunion of great toe of right foot: Code(s): M21.611 - Bunion of right foot Plan: Referred to Podiatry (2) Multinodular goiter: Comment: s/p negative thyroid nodule biopsy 2015 Dr. Rodas, f/u with [facility] q 4 yrs Code(s): E04.2 - Nontoxic multinodular goiter Plan: Monitor ultrasound with endocrinology every 4 years (3) Osteoporosis: Comment: Dexa 09/2021 T score -3.1 SPINE, intolerant to Fosamax, Prolia to be started 09/05, not tolerating Prolia, repeat DEXA in 01/2025 Code(s): M81.0 - Age-related osteoporosis without current pathological fracture Plan: Patient declined to take Prolia. She will have repeat DEXA next year. Patient will continue vitamin-D supplement and exercise (4) Annual physical exam: Code(s): Z00.00 - Encounter for general adult medical examination without abnormal findings Plan: Well-balanced diet regular physical activity discussed with the patient. Orders: Orders XR DEXA axial skeleton 1 Year M81.0 - Age-related osteoporosis without current pathological fracture Referrals Podiatry Referral M21.611 - Bunion of right foot Medications: Discontinued denosumab (Prolia) Discontinued Reason: Doctor's Order 60 mg subcut [id number] 1 mL 2RF Quality Reporting (2019) Depression/Bipolar (159/160/161/177) PHQ-9: Total score: 0 Coding Level of Care Code Medicare Subsequent (G0439) Diagnoses Bunion of great toe of right foot M21.611 Multinodular goiter E04.2 Osteoporosis M81.0 Annual physical exam Z00.00 CPT Codes Advance Care Planning - Advance Care Planning discussion: On file, no changes ([id number]) Advance Care Planning - Time spent: 1-15 minutes, on File ([id number]) Advance Care Planning Advance Care Planning discussion: On file, no changes Forms completed: Health Care Proxy Time spent: 1-15 minutes, on File
== END 2024-01-29 11:08 | disposition home or self-care (01) ==
PROVIDERS: PCP Internal Medicine; Visit Provider Internal Medicine
DX: Z00.00 Encounter for general adult medical examination without abnormal findings (principal); M21.611 Bunion of right foot; E04.2 Nontoxic multinodular goiter; M81.0 Age-related osteoporosis without current pathological fracture
CPT/HCPCS: 1123F; G0439

== ENCOUNTER 2024-06-02 10:57 | Outpatient (AMB) | payer MEDICARE, SELFPAY ==
--- NOTE | 2024-06-02 11:01 | AM.OFFWIN_ITS ---
Intake Vital Signs 06/02/24 11:02 Height 5 ft 1 in Weight 150 lb BMI 28.3 BP 120/86 Blood Pressure Location Rt brachial Position Sitting Pulse 66 Pulse Source Pulse Oximeter Pulse Oximetry (%) 99 Oxygen Delivery Method Room Air Intake Visit Reasons: EP Pain on LT side/ribs Intake Note: Patient here for left side/rib pain that started two days ago after working in her garden. Patient Tobacco Use Status: Never used Tobacco Allergies alendronate sodium Allergy (Unknown, Verified 06/02/24 11:03) bone pains Do you need a note to return to daycare/school/sports/work: No HPI EP Pain on LT side/ribs HPI Details This note is constructed using voice recognition software. While every effort has been made to ensure accuracy, digital media coordinator errors may have been included. The patient is a 73 year old female who presents to the clinic today with left- sided rib pain for the past 2 days after she was doing gardening. She reports that she was pulling on some stones when she pulled hard and accidentally hit her elbow into her ribs, which led to immediate pain. She has a history of osteoporosis which makes her worried. She denies dyspnea. She has not taken any medication for pain or applied any topicals, however has been using a compression wrap, which seems to help the pain a bit. [facility] Medical History Low back pain Annual physical exam Normal Pap smear Mammogram normal Osteoporosis Varicose vein of leg Multinodular goiter Surgical History H/O colonoscopy No pertinent past surgical history Family History Father Liver cancer Mother Liver cancer Brother Cancer Sister No problems noted. Son No problems noted. Son No problems noted. Son No problems noted. Social History Housing: Condominium Patient Tobacco Use Status: Never used Tobacco e-Cigarette/Vaping Use: Never Used Current occupational status: retired Cognitive needs: No Hearing needs: No Vision needs: No Review of Systems Const All systems reviewed & are unremarkable except as noted in HPI and below Physical Exam Vital Signs: Last Vital Signs Pulse 66 06/02/24 11:02 BP 120/86 06/02/24 11:02 Pulse Ox 99 06/02/24 11:02 Oxygen Delivery Method Room Air 06/02/24 11:02 BMI result Body Mass Index 28.3 Const General: cooperative, healthy appearing, comfortable, no acute distress and well developed Orientation/consciousness: patient oriented x3 Limitations: no limitations Chest Chest palpation & inspection: normal inspection of the chest and normal palpation of entire chest wall (With tenderness to the left lower rib region anteriorly) Resp Effort & Inspection: normal respiratory effort and able to speak in complete sentences Auscultation: clear to auscultation bilaterally Cardio Rate: regular rate Rhythm: regular rhythm Heart sounds: normal S1 and S2 Skin General skin exam: no rashes or lesions noted Neuro General: patient oriented x3 Assessment & Plan Assessment & Plan (1) Rib pain on left side: Code(s): R07.81 - Pleurodynia Plan: Given history of osteoporosis in nature of injury, x-ray ordered to rule out fracture. We will call patient with results once available. Advised use of NSAIDs, topical muscle rubs, and continue with brace that she is wearing for symptomatic management. Advised follow up with worsening or failure to resolve. Advised patient to follow up sooner should she develop any dyspnea. Plan See above for full details and plan. Orders: Orders XR ribs LT min 3V w CXR1V Today M81.0 - Age-related osteoporosis without current pathological fracture, R07.81 - Pleurodynia Coding Level of Care Code Est Pt Level 3 (10103) Diagnoses Rib pain on left side R07.81
[2024-06-02 11:02] VITALS: BP 120/86; PULSE 66; O2SAT 99; BMI 28.3
== END 2024-06-02 12:22 | disposition home or self-care (01) ==
PROVIDERS: PCP Internal Medicine; Visit Provider Registered Nurse
DX: R07.81 Pleurodynia (principal)

== ENCOUNTER 2024-06-02 11:14 | Outpatient (REF) | payer MEDICARE, SELFPAY ==
--- NOTE | ~2024-06-02 | XR_ITS ---
EXAMINATION: XR RIBS, LEFT CLINICAL INFORMATION: Pleurodynia COMPARISON: None available. TECHNIQUE: 3 views of the left ribs were obtained. FINDINGS: Lungs are clear. No consolidation, pneumothorax, or pleural effusion. The cardiomediastinal silhouette and pulmonary vasculature are normal. Osseous structures are unremarkable. Ribs are intact. No fractures are identified. XR/XR ribs LT min 3V w CXR1V IMPRESSION: No displaced fracture. Electronically signed by: Alex Owens MD 06/02/2024 12:56 PM [facility] [place]
== END 2024-06-02 11:15 | disposition home or self-care (01) ==
LOC: HO.HMGCX 11:14
PROVIDERS: PCP Internal Medicine; Visit Provider Registered Nurse
DX: R07.81 Pleurodynia (principal); M81.0 Age-related osteoporosis without current pathological fracture
CPT/HCPCS: 71101; 99212

== ENCOUNTER → 2024-12-31 13:00 | Outpatient (BNV) | payer MEDICARE, SELFPAY | PROVIDERS: PCP Internal Medicine; Visit Provider Radiology Diagnostic Radiology | DX: E28.39 Other primary ovarian failure (principal) | CPT/HCPCS: 77080 ==

== ENCOUNTER 2024-12-31 13:07 | Outpatient (REF) | payer MEDICARE, SELFPAY ==
--- NOTE | ~2024-12-31 | MM_ITS ---
EXAMINATION: DXA BONE DENSITY AXIAL HISTORY: M81.0 - Age-related osteoporosis without current pathological fracture TECHNIQUE: [employer] Dual energy absorptiometry (DEXA) of the lumbar spine, total left hip, and femoral neck was performed. COMPARISON: Comparison is made with the prior examination dated 10/09/2021. FINDINGS: The bone mineral density of the lumbar spine is 1.086, corresponding to a T-score of -0.8, and a Z-score of 1.0. This is indicative of normal bone mineral density. This represents a BMD change of 13.1% compared to the prior exam. This is statistically significant. The bone mineral density of the left total hip is 0.903, corresponding to a T-score of -0.8, and a Z-score of 1.0. This is indicative of normal bone mineral density. This represents a BMD change of 0.0% compared to the prior exam. This is not statistically significant. The bone mineral density of the left femoral neck is 0.745, corresponding to a T-score of -2.1, and a Z-score of -0.1. This is indicative of osteopenia. This represents a BMD change of -1.3% compared to the prior exam. FRACTURE RISK: The FRAX index suggests a ten year probability of major osteoporotic fracture of 14.6%, and of hip fracture 4.1%. MM/XR DEXA axial skeleton IMPRESSION: Based on bone mineral density, and according to World Health Organization (WHO) criteria, the diagnosis is consistent with osteopenia. All bone density values are in grams per centimeter squared (g/cm2). Statistically, 68% of repeat scans fall within 1 SD (+/- 0.010 g/cm2 for AP spine L1-L4) and 1 SD (+/- 0.012 g/cm2 for femur total) FRAX is a trademark of the [employer] Metabolic Bone Disease, a World Health Organization (WHO) Collaborating Center. Electronically signed by: Yoandy Musa MD 01/03/2025 07:45 AM EDT
--- OUTSIDE RECORDS SUMMARY | 2024-12-31 13:09 | XMS_ITS | Clinical Summary ---
Author Organization 175 [facility] Address [address] [place] [address] Phone Care Team Providers Care Dynamite Cartridge Crimper Name Role Phone Alexa Ibrahim MD Primary Care Provider [phone] Allergies No known active allergies Social History Tobacco Use Types Packs/Day Years Used Date Smoking Tobacco: Never Assessed Comments Unknown Sex and Gender Information Value Date Recorded Sex Assigned at Not on file Legal Sex Female 10:49 PM EST Gender Identity Not on file Sexual Orientation Not on file Last Filed Vital Signs Vital Sign Reading Time Taken Comments Blood Pressure - - Pulse - - Temperature - - Respiratory Rate - - Oxygen Saturation - - Inhaled Oxygen Concentration - - Weight 65.8 kg (145 lb) 08/05/2024 9:34 AM EST Height 162.6 cm (5' 4 ) 08/05/2024 9:34 AM EST Body Mass Index 24.89 08/05/2024 9:34 AM EST Plan of Treatment Health Maintenance Due Date Last Done Comments Zoster Vaccines (1 of 2) 1998 Pneumococcal Vaccine: 50+ Ye ars (2 of 2 - PCV) 02/18/2016 02/17/2015 RSV Immunization Adult Patie nts (1 - 1-dose 75+ series) 11/02/2023 COVID-19 Vaccine ( - 2023-2 5 season) 2024 Depression Screening 05/05/2024 Falls Risk Assessment 05/05/2024 Hepatitis C Screening 05/05/2024 Medicare Annual Wellness Visit 05/05/2024 Osteoporosis Screening (Bone Density Screening) 05/05/2024 Social Influencers of Health Screening 05/05/2024 DTaP,Tdap,and Td Vaccines (2 - Td or Tdap) 02/17/2025 02/17/2015 Influenza Vaccine (Season Ended) 2025 HIB Vaccines Aged Out No longer eligi ble based on patient's age to complete this topic HPV Vaccines Aged Out No longer eligi ble based on patient's age to complete this topic Hepatitis A Vaccines Aged Out No long er eligible based on patient's age to complete this topic Hepatitis B Vaccines Aged Out No long er eligible based on patient's age to complete this topic IPV Vaccines Aged Out No longer eligi ble based on patient's age to complete this topic MMR Vaccines Aged Out No longer eligi ble based on patient's age to complete this topic Meningococcal ACWY Vaccine Aged Out N o longer eligible based on patient's age to complete this topic Meningococcal B Vaccine Aged Out No l onger eligible based on patient's age to complete this topic RSV Immunization Patients Un hanh 20 months Aged Out No longer eligible b ased on patient's age to complete this topic Varicella Vaccines Aged Out No longer eligible based on patient's age to complete this topic Insurance [employer] [place] [address] Care Teams Dynamite Cartridge Crimper Relationship Specialty Start Date End Date Alexa Ibrahim MD PCP - General Internal Medicine 06/08/24
== END 2024-12-31 13:08 | disposition home or self-care (01) ==
LOC: HO.MAMMO 13:07
PROVIDERS: PCP Internal Medicine; Visit Provider Internal Medicine
DX: M81.0 Age-related osteoporosis without current pathological fracture (principal)
CPT/HCPCS: 77080

== ENCOUNTER 2025-02-02 09:42 | Outpatient (AMB) | payer MEDICARE, SELFPAY ==
[2025-02-02 09:52] VITALS: BP 124/66; PULSE 74; RESP 18; TEMP 36.7; O2SAT 95; BMI 27.0
--- NOTE | 2025-02-02 09:52 | AM.OFFVISMDC ---
Intake Vital Signs 02/02/25 09:52 Height 5 ft 1 in Weight 143 lb BMI 27.0 BP 124/66 Blood Pressure Location Rt brachial Position Sitting Respiration 18 Pulse 74 Pulse Source Pulse Oximeter Temp 98.0 F Temp Source Oral Pulse Oximetry (%) 95 Oxygen Delivery Method Room Air Intake Visit Reasons: SWV G0439 Allergies alendronate sodium Allergy (Unknown, Verified 02/02/25 09:52) bone pains Medication List - Last Reconciled 02/02/25 by Alexa Ibrahim MD furosemide 20 mg PO Q OTHER DAY tretinoin 0.025% 1 appl topical BEDTIME HPI SWV G0439 HPI Details Initiated the conversation about Advanced Directives. Advanced Directives help? patients prepare for current and future decisions about their medical treatment? and place of care. Discussed with patient that it is a process where a patients? current condition and prognosis are reviewed, their wishes for information? regarding their illness are elicited, and likely medical dilemmas are presented? and options discussed. The form can be amended as needed, reviewed yearly and? make changes as needed IPPE/AWV ? year old presents? for her ? Annual? Wellness Visit, initial visit.? Medical / Social History Reviewed? Past Medical History ?Yes? . ? [place]? of Care / Care Team list updated ?Yes . ? Surgical/Hospitalization? History ?Yes . ? Current Medications? (including OTC and supplements) ?Yes . ? Family History ?Yes? . ? Tobacco? Control form ?Yes . ? AUDIT-C (Alcohol use) form? ?Yes . ? Illicit drug use in Social? History ?Yes . ? Current diagnosis of? depression? ?No ? Appropriate PHQ2/PHQ9? completed ?Yes . ? Data entered by ?Medical? [facility] and reviewed by provider ? Fall Risk ? Fall? History? Have you had any falls with? injury in the past year? ?No . ? Have you had two or more? falls in the past year? ?No . ? Fall Risk Assessment: ?No? falls in the past year . ? HRA filled out by? the patient, reviewed by Provider and scanned. ? IPPE/AWV ? Balance? Romberg? ?Yes . ? Tandem? walk ?Yes . ? Walk and? Turn ?Yes . ? Rise from? sit to stand ?Yes . ?Vision? Corrective? lens ?Yes ? Vision? screen ? Up-to-date, has an appointment [] for vision? screening and glaucoma screening ?Hearing? Whisper? test ?pass .? Initiated the conversation about Advanced Directives. Advanced Directives help? patients prepare for current and future decisions about their medical treatment? and place of care. Discussed with patient that it is a process where a patients? current condition and prognosis are reviewed, their wishes for information? regarding their illness are elicited, and likely medical dilemmas are presented? and options discussed. The form can be amended as needed, reviewed yearly and? make changes as needed Written? Plan?Completed. See Patient? Documents. [facility] Medical History (Updated 02/02/25 @ 10:48 by Alexa Ibrahim MD) Osteopenia Low back pain Annual physical exam Normal Pap smear Mammogram normal Varicose vein of leg Multinodular goiter Surgical History H/O colonoscopy No pertinent past surgical history Family History Father Liver cancer Mother Liver cancer Brother Cancer Sister No problems noted. Son No problems noted. Son No problems noted. Son No problems noted. Social History Housing: Condominium Patient Tobacco Use Status: Never used Tobacco e-Cigarette/Vaping Use: Never Used Current occupational status: retired Cognitive needs: No Hearing needs: No Vision needs: No Questionnaire Medicare Wellness Checkup What [age] What gender do you identify with?: female During the past 4 weeks, how much have you been bothered by emotional problems such as feeling anxious, depressed, irritable, sad or downhearted, and blue?: not at all During the past 4 weeks, has your physical & emotional health limited your social activities with family, friends, neighbors, or groups?: not at all During the past 4 weeks, how much bodily pain have you generally had?: mild pain During the past 4 weeks, was someone available to help you if you needed & wanted help?: yes, as much as I wanted During the past 4 weeks, what was the hardest physical activity you could do for at least 2 minutes?: moderate Can you get to places out of walking distance without help? (For eg., can you travel alone on buses, taxis or drive your car?): No Can you go shopping for groceries or clothes without someone's help?: Yes Can you prepare your own meals?: Yes Can you do your housework without help?: Yes Because of any health problems, do you need the help of another person with your personal care needs such as eating, bathing, dressing or getting around the house?: No Can you handle your own money without help?: Yes During the past 4 weeks, how would you rate your health in general?: good During the past 4 weeks how have things been going for you?: very well; could hardly better Are you having difficulties driving your car?: not applicable, I don't use a car Do you always fasten your seat belt when you are in a car?: yes, usually During past 4 weeks, have you been bothered by the following: never: Falling or dizzy when standing up, Sexual problems?, Trouble eating well?, Teeth or denture problems?, Problems using the telephone? and Tiredness or fatigue? Have you fallen 2 or more times in the past year?: No Are you afraid of falling?: No Are you a smoker?: no During the past 4 weeks, how many drinks of wine, beer, or other alcoholic beverages did you have?: no alcohol at all Do you exercise for about 20 minutes 3 or more times a week?: yes, some of the time Have you been given information to help with the following?: no: Hazards in your house that might hurt you? and no: Keeping track of your medications? How often do you have trouble taking medicines the way you have been told to take them?: I always take medicine as prescribed How confident are you that you can control & manage most of your health problems?: very confident What is your race?: White Mini Mental State Exam (MMSE) Orientation What is the (year) (season) (date) (day) (month)?: year, season, date, day and month Where are we (state) (county) (town or city) (hospital) (floor)?: state, county, town or city, hospital/clinic and floor Registration Name of 3 unrelated objects clearly and slowly, then ask patient to repeat all 3 of them. (1st repeat determines score. Make sure they can repeat all three): object 1, object 2 and object 3 Attention & Calculation (CHOOSE ONE) Spell WORLD backwards (DLROW): 5 letters Recall Ask patient to repeat the 3 items from question #3.: object 1, object 2 and object 3 Language Show patient a wristwatch & ask what it is. Repeat for pencil.: watch and pencil Ask the patient to repeat the phrase 'No ifs, ands, or buts' after you.: correct Ask the patient to 'take a piece of paper with their right hand' 'fold paper in half' 'place paper on floor': take paper in right hand, fold paper in half and place paper on floor Print the sentence 'CLOSE YOUR EYES' on a piece. If patient actually closes eyes then score.: followed written direction Give patient a blank piece of paper & ask to write a sentence. Score if it contains a noun & verb.: sentence contains subject and verb Score Score: 29 PHQ-9 Over the last 2 weeks, how often have you been bothered by any of the following problems? 1. Little interest or pleasure in doing things: not at all 2. Feeling down, depressed, or hopeless: not at all 3. Trouble falling or staying asleep, or sleeping too much: not at all 4. Feeling tired or having little energy: not at all 5. Poor appetite or overeating: not at all 6. Feeling bad about yourself - or that you are a failure or have let yourself or your family down: not at all 7. Trouble concentrating on things, such as reading the newspaper or watching television: not at all 8. Moving or speaking so slowly that other people could have noticed. Or the opposite - being so fidgety or restless that you have been moving around a lot more than usual: not at all 9. Thoughts that you would be better off or of hurting yourself in some way: not at all Total score: 0 Depression Screening Interpretation: Negative Depression Screening Done: Yes 01727 - PHQ-9 Billing: Yes Source: Developed by Drs. Yoandy Falcon, Yolanda Morrison, Cody Schuler and colleagues, with an educational kaylene from [employer]. Review of Systems Const All systems reviewed & are unremarkable except as noted in HPI and below Reports no additional complaints Eyes Reports no additional complaints ENT Reports no additional complaints Card Reports no additional complaints Resp Reports no additional complaints GI Reports no additional complaints Reports no additional complaints Musc Reports no additional complaints Physical Exam Vital Signs: Last Vital Signs Temp 98.0 F 02/02/25 09:52 Pulse 74 02/02/25 09:52 Resp 18 02/02/25 09:52 BP 124/66 02/02/25 09:52 Pulse Ox 95 02/02/25 09:52 Oxygen Delivery Method Room Air 02/02/25 09:52 BMI result Body Mass Index 27.0 Const General: no acute distress HEENT Head: Yes normal to inspection Ears: hearing grossly normal bilaterally Eyes General: appearance normal, both eyes and all related structures Neck Neck: Yes no lymphadenopathy and Yes supple Resp Effort & Inspection: normal respiratory effort Auscultation: clear to auscultation bilaterally Cardio Rhythm: regular rhythm Heart sounds: S1 normal heart sound present and S2 normal heart sound present GI Inspection: Yes normal to inspection Percussion: Yes normal to percussion Auscultation: normal bowel sounds Extrem General: Yes no clubbing, cyanosis or edema Assessment & Plan Assessment & Plan (1) Multinodular goiter: Comment: s/p negative thyroid nodule biopsy 2015 Dr. Rodas, f/u with [facility] Endo q 4 yrs Code(s): E04.2 - Nontoxic multinodular goiter Plan: check TSH (2) Annual physical exam: Comment: Patient declined Pneumovax Code(s): Z00.00 - Encounter for general adult medical examination without abnormal findings Plan: Well-balanced diet regular physical activity discussed with the patient. (3) Osteopenia: Comment: DEXA 12/2024 T score -2.1 L fem neck Code(s): M85.80 - Other specified disorders of bone density and structure, unspecified site Plan: Continue vitamin-D supplement and weight-bearing exercises Orders: Orders Vitamin D 25-OH (D2 and D3) Today E04.2 - Nontoxic multinodular goiter, E55.9 - Vitamin D deficiency, unspecified, M81.0 - Age-related osteoporosis without current pathological fracture, Z00.00 - Encounter for general adult medical examination without abnormal findings Lipid Panel Today E04.2 - Nontoxic multinodular goiter, E55.9 - Vitamin D deficiency, unspecified, M81.0 - Age-related osteoporosis without current pathological fracture, Z00.00 - Encounter for general adult medical examination without abnormal findings UA w Microscopic Today E04.2 - Nontoxic multinodular goiter, E55.9 - Vitamin D deficiency, unspecified, M81.0 - Age-related osteoporosis without current pathological fracture, Z00.00 - Encounter for general adult medical examination without abnormal findings Urine Culture Today R30.0 - Dysuria Comprehensive [place]. Panel Fast Today E04.2 - Nontoxic multinodular goiter, E55.9 - Vitamin D deficiency, unspecified, M81.0 - Age-related osteoporosis without current pathological fracture, Z00.00 - Encounter for general adult medical examination without abnormal findings Complete Blood Count Auto Diff Today E04.2 - Nontoxic multinodular goiter, E55.9 - Vitamin D deficiency, unspecified, M81.0 - Age-related osteoporosis without current pathological fracture, Z00.00 - Encounter for general adult medical examination without abnormal findings TSH reflex Free T4 Today E04.2 - Nontoxic multinodular goiter, E55.9 - Vitamin D deficiency, unspecified, M81.0 - Age-related osteoporosis without current pathological fracture, Z00.00 - Encounter for general adult medical examination without abnormal findings Quality Reporting (2019) Depression/Bipolar (159/160/161/177) PHQ-9: Total score: 0 Coding Level of Care Code Medicare Subsequent (G0439) Diagnoses Multinodular goiter E04.2 Annual physical exam Z00.00 Osteopenia M85.80 CPT Codes Advance Care Planning - Advance Care Planning discussion: On file, no changes ([id number]) Advance Care Planning - Time spent: 1-15 minutes, on File ([id number]) Additional Codes PHQ-9 - 06112 - PHQ-9 Billing: Yes ([id number]) Advance Care Planning Advance Care Planning discussion: On file, no changes Forms completed: Health Care Proxy Time spent: 1-15 minutes, on File Did not discuss due to Cultural/Spiritual beliefs: Yes
--- OUTSIDE RECORDS SUMMARY | 2025-02-02 10:16 | XMS_ITS | Data Portability ---
Author Organization [place] - [facility], Allergy Address [address] [address] Assessment Encounter Date Assessment Date Assessment LastModified by Organization Details LastModified Time 01/28/2024 01/28/2024 73-year-old female presents for evaluation of postnasal drip, throat clearing, and hoarseness. Fiberoptic laryngoscopy was benign without mass or lesion. Anterior rhinoscopy demonstrated septal spur to the right, but no purulence, rhinorrhea, or turbinate hypertrophy. Given lack of allergy and sinus history, will hold off on allergy testing and CT sinus. Patient agrees with the plan. She may continue with use of Flonase nasal spray once daily given improvement in symptoms. If symptoms persist or worsen, she will follow-up for reevaluation. May consider trial of ipratropium nasal spray. jeni Not available 01/28/2024 12:24:45 Plan of Treatment Reminders Order Date Submit Date Provider Last Modified By Organization Details Last Modified Time Details Appointments None record ed. Lab None record ed. Referral None record ed. Procedures None record ed. Surgeries None record ed. Imaging None record ed. Medication Orders None record ed. Patient TargetsNo targets recorded. Patient InstructionsNo instructions recorded. Reason for Referral None Reported. Problems Name Problem SNOMED Code Status Onset Date Resolution Date Notes Provider Name and Address Organization Details Recorded Time Posterior rhinorrhea 79200130 Active 024 HPILLIP GALVIN PA-C [address] [place] [address], [place], [address] [place] - [facility] 12:22:37 Hoarse 63313962 Active 024 PHILLIP GALVIN PA-C [address], [address], [facility] 12:22:46 Problem Notes None recorded. Procedures Surgical History Date Name Laterality Status Provider Name and Address Organization Details Recorded Time 01/28/20 24 Fiberoptic Laryngoscopy (Comprehensive) completed PHILLIP GALVIN PA-C 100 [facility] [address], [place], [address], [facility] 01/28/2024 12:22:27 Imaging Results None recorded. Procedure Notes None recorded. Medical Equipment None Reported. Allergies No known drug allergies Medications Name Sig Start Date Stop Date Status Note LastModified by Organization Details LastModified Time tretinoin 0.025 % topical cream APPLY SPARINGLY TO FACE AT BEDTIME FOR PHOTOAGING active Not Available Not Available N ot Available tretinoin 0.05 % topical cream APPLY SPARINGLY AT NIGHT TOLERATED FOR BROWN SPOTS. active Not Available Not Available No t Available sulfamethoxa zole 800 mg-trimethop rim 160 mg tablet TAKE 1 TABLET BY MOUTH 2 TIMES A DAY FOR 5 DAYS active Not Available Not Available N ot Available Prolia 60 mg/mL subcutaneous syringe active Not Available Not Available Not Available Vitals Date Recorded Body height Body mass index (BMI) Body weight Provider Name and Address Organization Details Last Updated DateTime 01/28/2024 152.4 cm 27 kg/m2 95644.75 g Dori Raygoza [place] - [facility] 01/28/2024 11:06:30 Social History None recorded. Functional Status None recorded. Mental Status None recorded. Family History Nothing Reported. Medical History No medical history recorded. Gynecological HistoryNo gynecological history recorded. Obstetrics History GPAL:G 0 P 0 0 0 0 Past Encounters Encounter ID Performer Location Encounter Start Date Encounter Closed Date Diagnosis/Indication Diagnosis SNOMED-CT Code Diagnosis ICD10 Code Diagnosis Note [id number] PHILLIP GALVIN PA-C [facility] [address] [place] [address] 01/28/2024 10:52:35 01/28/2024 11:42:30 Posterior rhinorrhea 69168394 R09.82 Hoarse 19318472 R49.0 Health Concerns Section Related Observation LastModified by Organization Detai ls LastModified Time None Recorded Concern Status LastModified by Organization Details LastModified Time None Recorded Advance Directives Directive None Recorded Payers Insurance Date Sequence Insurance Name Policy Number Policy Barakat Covered Member ID Barakat Member ID Guarantor Name 01/28/2024 2 [place] [employer] Chloe A Los [id number] Chloe A Los 01/28/2024 1 [place] [place] Chloe A Los [id number] Chloe A Los 01/28/2024 1 [facility] [place] ([place]IC[place] REPLAC[place]/ADV ANTAGE - HMO) Chloe A Los [id number] Chloe A Los 01/30/2024 1 [facility] - DOS ON OR AFTER 2022 - MEDICARE [place]AGE [place]MEDICARE REPLACEMENT/ADV ANTAGE - PPO) Chloe A Los [id number] Chloe A Los Notes Date Note Type Note Provider Name and Address Organization Details Recorded Time 01/28/2024 text/html 73 year old jerome najera presents for evaluation of PND and throat clearing. Also notes intermittent hoarseness. Has tried saline spray and Flonase with some improvement. Notes sporadic episodes of heartburn, but does not take any antacids. Denies tobacco use. No history of allergy or chronic sinusitis. Denies dysphagia, otalgia, or hemoptysis. History of thyroid nodules follow by PCP. PHILLIP GALVIN PA-C [address] [place] [address], [address], [facility] - [facility] 01/28/2024 12:26:52 OBGyn Episode No OBEpisode recorded.
--- OUTSIDE RECORDS SUMMARY | 2025-02-02 10:16 | XMS_ITS | Clinical Summary ---
Author Organization 175 [facility] Address [address] [place] [address] Phone Care Team Providers Care Orientation And Mobility Specialist Name Role Phone Alexa Ibrahim MD Primary Care Provider [phone] Allergies No known active allergies Social History [...] - 1-dose 75+ series) 11/02/2023 COVID-19 Vaccine (1 - 2023-2 5 season) 2024 Falls Risk Assessment 05/05/2024 Hepatitis C Screening 05/05/2024 Medicare Annual Wellness Visit 05/05/2024 Osteoporosis Screening (Bone Density Screening) 05/05/2024 Social Influencers of Health Screening 05/05/2024 Depression Screening 07/14/2024 DTaP,Tdap,and Td Vaccines (2 - Td or Tdap) 02/17/2025 02/17/2015 Influenza Vaccine (#1) 2025 HIB Vaccines Aged Out No longer [...] complete this topic Insurance [employer] MEDICARE Care Teams Orientation And Mobility Specialist Relationship Specialty Start Date End Date Alexa Ibrahim MD PCP - General Internal Medicine 06/08/24
== END 2025-02-02 10:50 | disposition home or self-care (01) ==
PROVIDERS: PCP Internal Medicine; Visit Provider Internal Medicine
DX: Z00.00 Encounter for general adult medical examination without abnormal findings (principal); E04.2 Nontoxic multinodular goiter; M85.80 Other specified disorders of bone density and structure, unspecified site

== ENCOUNTER 2025-02-02 09:42 | Outpatient (REF) | payer MEDICARE, SELFPAY ==
[2025-02-02 13:10] LABS: MANUAL DIFF FLAG NO
[2025-02-02 13:31] LABS: Hematocrit 43.6 % (37.0-47.0); Hemoglobin 14.4 g/dl (12.0-16.0); Imm Gran Abs Auto 0.02 X10*3/uL (0.00-0.03); Imm Gran Pct Auto 0.3 % (0.0-0.4); Lymphocytes Absolute Auto 2.7 X10*3/uL (1.2-4.9); Mean Corpuscular HGB Conc 33.0 g/dl (31.0-35.0); Mean Corpuscular Hemoglobin 28.1 pg (27.0-33.0); Mean Corpuscular Volume 85.0 fL (80.0-98.0); NRBC Abs Auto 0.000 X10*3/uL (0.0-0.012); NRBC Pct Auto 0.0 /100WBC (0.0-0.2); Platelet Count 237 X10*3/uL (160-400); Red Blood Count 5.13 X10*6/uL (4.20-5.50); White Blood Count 7.4 X10*3/uL (4.8-10.8)
[2025-02-02 13:44] LABS: Appearance Urine Turbid; Glucose Urine UA Negative (Negative); PH 6.5 (5.0-9.0); Specific Gravity - Urine 1.015 (1.005-1.025); UMIC TRIGGER UA YES
[2025-02-02 13:58] LABS: Alanine Aminotransferase 29 U/L (0-31); Albumin Level 4.2 g/dL (3.5-5.0); Alkaline Phosphatase 88 U/L (39-117); Anion Gap 14 (12-20); Aspartate Amino Transferase 29 U/L (5-31); Blood Urea Nitrogen 21 mg/dL (9-16); Calcium 9.6 mg/dL (8.4-10.2); Carbon Dioxide 24 mmol/L (22-29); Chloride 108 mmol/L (96-108); Cholesterol 221 mg/dL (<200); Estimated Glomerular Filt Rate > 60; HDL Cholesterol 47 mg/dL (>40); Potassium 4.3 mmol/L (3.3-5.1); Sodium 142 mmol/L (135-145); Total Protein 7.0 g/dL (6.5-8.0); Triglycerides 197 mg/dL (<150)
[2025-02-02 14:38] LABS: Free T4 (Free Thyroxine) 1.04 ng/dL (0.71-1.85)
[2025-02-06 16:17] LABS: Vitamin D 25-OH, D2 <4 ng/mL; Vitamin D 25-OH, D3 81 ng/mL; Vitamin D 25-OH, Total 81 ng/mL (30-100)
== END 2025-02-02 09:43 | disposition home or self-care (01) ==
LOC: HO.HMGCLDS 09:42
PROVIDERS: PCP Internal Medicine; Visit Provider Internal Medicine
DX: Z00.00 Encounter for general adult medical examination without abnormal findings (principal); E04.2 Nontoxic multinodular goiter; M85.80 Other specified disorders of bone density and structure, unspecified site; M81.0 Age-related osteoporosis without current pathological fracture; E55.9 Vitamin D deficiency, unspecified; R30.0 Dysuria
CPT/HCPCS: 36415; 80053; 80061; 81001; 82306; 84439; 84443; 85025; 87086; 96127

== ENCOUNTER 2025-04-01 10:42 | Outpatient (AMB) | payer MEDICARE, SELFPAY ==
[2025-04-01 10:51] VITALS: BP 132/60; PULSE 81; TEMP 37.8; O2SAT 95; BMI 26.4
--- NOTE | 2025-04-01 10:51 | MHC.OFFWIV ---
Intake Vital Signs 04/01/25 10:51 Height 5 ft 1 in Weight 140 lb BMI 26.4 BP 132/60 Blood Pressure Location Lt brachial Position Sitting Pulse 81 Pulse Source Pulse Oximeter Temp 100.1 F Temp Source Oral Pulse Oximetry (%) 95 Oxygen Delivery Method Room Air Intake Visit Reasons: epvery sore right side ribs Intake Note: pt presents with torso pain, chest pain with deep breaths and SOB with short distances, dry sinus cavity and weakness for 3 days Patient Tobacco Use Status: Never used Tobacco Allergies alendronate sodium Allergy (Unknown, Verified 04/01/25 10:55) bone pains Do you need a note to return to daycare/school/sports/work: No HPI HPI Comments History of Present Illness Details History - The patient is a 74-year-old female presenting with middle back pain. - The pain began after cleaning her house 3 days ago, with onset occurring a few hours post-activity. - The pain is described as soreness around the ribs, chest, and hips, exacerbated by movement. - The patient has taken four pain relief pills this week but generally avoids medication. - She reports no history of falls or injuries. - There is no cough or congestion, but she notes a dry nose with occasional yellow discharge. - The patient denies any urinary changes or blood in urine. + Physical Exam General: cooperative, healthy appearing and comfortable, patient oriented x3 Head: Yes normal to inspection and Yes normocephalic General nose exam: Normal external nose present, but very dry with a little bit of a runny nose Face and sinus: Yes normal facial exam Effort & Inspection: normal respiratory effort and able to speak in complete sentences Back/spine: no CVA tenderness bilaterally, no pain on the spine cervical, thoracic and lumbar spine normal to inspection cervical ROM normal, thoracic ROM normal, lumbar ROM normal no Cervical, thoracic or lumbar spine tenderness TTP on bilateral thoracic back Neurological: A&Ox3, gait normal Review of Systems - Musculoskeletal: Reports generalized body pain, particularly around ribs, chest, and hips - Respiratory: Denies cough or congestion - Genitourinary: Denies urinary changes or hematuria All systems reviewed and are unremarkable except as noted in HPI and above [facility] Medical History (Updated 04/01/25 @ 11:08 by Alice Hoskins PA-C) Osteopenia Low back pain Annual physical exam Normal Pap smear Mammogram normal Varicose vein of leg Multinodular goiter Surgical History H/O colonoscopy No pertinent past surgical history Family History Father Liver cancer Mother Liver cancer Brother Cancer Sister No problems noted. Son No problems noted. Son No problems noted. Son No problems noted. Social History Housing: Condominium Patient Tobacco Use Status: Never used Tobacco e-Cigarette/Vaping Use: Never Used Current occupational status: retired Cognitive needs: No Hearing needs: No Vision needs: No Physical Exam Vital Signs: Last Vital Signs Temp 100.1 F 04/01/25 10:51 Pulse 81 04/01/25 10:51 BP 132/60 04/01/25 10:51 Pulse Ox 95 04/01/25 10:51 Oxygen Delivery Method Room Air 04/01/25 10:51 BMI result Body Mass Index 26.4 Assessment & Plan Assessment & Plan (1) Acute thoracic back pain: Code(s): M54.6 - Pain in thoracic spine Qualifiers: Back pain laterality: bilateral Qualified Code(s): M54.6 - Pain in thoracic spine Plan: Plan - Negative CVA bilaterally, but the location of pain raises concern for kidney stones. - Likely musculoskeletal strain of back secondary to house cleaning. - Prescribed a muscle relaxant for musculoskeletal pain, advising use when not driving or consuming alcohol. - Prescribed naproxen, an anti-inflammatory, to be taken every 12 hours for two days. - Advised to return if symptoms persist, to evaluate for potential kidney stones. Patient was informed and verbally consented to the use of an ambient scribe for clinic note documentation during this visit. Medications: New cyclobenzaprine 5 mg PO Q8H PRN 20 tabs 0RF Muscle Spasm naproxen 500 mg PO Q12H PRN 20 tabs 0RF pain Coding Level of Care Code Est Pt Level 3 (56445) Diagnoses Acute bilateral thoracic back pain M54.6 Back pain laterality: bilateral
--- OUTSIDE RECORDS SUMMARY | 2025-04-01 11:19 | XMS_ITS | Clinical Summary ---
Author Organization [address] [facility] Address [address] [place] [address] Phone Care Team Providers Care Rake Operator Name Role Phone Alexa Ibrahim MD Primary Care Provider [phone] Allergies No known active allergies Social History [...] nts (1 - 1-dose 75+ series) 11/02/2023 Falls Risk Assessment 05/05/2024 Hepatitis C Screening 05/05/2024 Medicare Annual Wellness Visit 05/05/2024 Osteoporosis Screening (Bone Density Screening) 05/05/2024 Social Influencers of Health Screening 05/05/2024 Depression Screening 07/14/2024 DTaP,Tdap,and Td Vaccines (2 - Td or Tdap) 02/17/2025 02/17/2015 COVID-19 Vaccine (1 - 2023-2 5 season) 2025 Influenza Vaccine (#1) 2025 HIB Vaccines Aged [...] topic Insurance [employer] MEDICARE Care Teams Rake Operator Relationship Specialty Start Date End Date Alexa Ibrahim MD PCP - General Internal Medicine 06/08/24
== END 2025-04-01 11:15 | disposition home or self-care (01) ==
PROVIDERS: PCP Internal Medicine; Visit Provider Physician Assistant
DX: M54.6 Pain in thoracic spine (principal)

== ENCOUNTER → 2025-04-01 10:42 | Outpatient (BNVA) | payer MEDICARE, SELFPAY | PROVIDERS: PCP Internal Medicine; Visit Provider Physician Assistant | DX: M54.6 Pain in thoracic spine (principal) | CPT/HCPCS: 99212 ==